=== PATIENT | female | born 1955 | race Caucasian/White ===

== ENCOUNTER → 2018-06-29 | Outpatient (CLI) | payer MEDICARE, OTHER ==
[~2018-06-29] MED LIST: ACID CONTROL150 MG PO; COREG12.5 MG PO; DEMADEX100 MG PO; FLAX SEED OIL1 EACH PO; KLOR-CON 88 MEQ PO; LANOXIN125 MCG PO; LIPITOR10 MG PO; MECLIZINE HCL12.5 MG PO; METFORMIN HCL500 MG PO; PRINIVIL10 MG PO; RANITIDINE HCL150 MG; TIROSINT100 MCG PO; eliquis PO
--- NOTE | 2018-06-29 14:23 | Diagnostic Imaging Report ---
EXAM: Lumbar spine radiographs-5 views; sacrum/coccyx radiographs-3 views INDICATION: Low back pain status post fall. COMPARISON: None FINDINGS: BONES: Mild anterolisthesis of L4 and L5. No acute displaced fractures in the lumbar spine, sacrum, or coccyx. Bowel gas partially obscures visualization of the sacrum and coccyx. Vertebral body heights are preserved. DISCS: Mild degenerative disc changes. JOINTS: Mild facet degenerative changes, most pronounced at L4-L5 and L5-S1. Mild bilateral sacroiliac joints degenerative changes. OTHER: Atherosclerotic vascular calcifications. Partially seen pacemaker leads. IMPRESSION: No acute radiographic abnormality. Signed by: Dr. Romana Lozano MD on 06/29/2018 2:20 PM
== END ==
LOC: RAD 12:52
PROVIDERS: ATTEND Internal Medicine
DX: M54.5 Low back pain (principal); Z91.81 History of falling
CPT/HCPCS: 72110; 72220

== ENCOUNTER → 2024-05-30 | Outpatient (REF) | payer MEDICARE, OTHER ==
[~2024-05-30] MED LIST changes: +ALLOPURINOL300 MG PO; +AMIODARONE HCL200 MG PO; +FAMOTIDINE20 MG PO; +VITAMIN B-121000 MCG PO
== END ==
LOC: RAD 11:46
PROVIDERS: ATTEND Internal Medicine
DX: Z01.818 Encounter for other preprocedural examination (principal)
CPT/HCPCS: 93005

== ENCOUNTER 2024-09-03 16:02 | Emergency (ER) | payer MEDICARE, OTHER ==
[~2024-09-03] VITALS: Ht 160 cm; Wt 147.4 kg
[2024-09-03 16:28] VITALS: PULSE 70; RESP 16; TEMP 98.4; O2SAT 97
[2024-09-03] MEDS ORDERED: CEFDINIR300 MG PO (16:58)
[2024-09-03 17:31] LABS: LEUKOCYTE ESTERASE ,URINE SMALL (NEGATIVE); PROTEIN,URINE DIPSTICK 2+ (NEGATIVE); URINE UROBILINOGEN 0.2 mg/dL (0.2 - 1)
[2024-09-03 17:41] LABS: WBC,URINE (MAN) >50 /HPF (0-5)
== END 2024-09-03 17:05 | disposition home or self-care (01) ==
LOC: ER 16:56
DX: R30.0 Dysuria (principal); N39.0 Urinary tract infection, site not specified; I50.9 Heart failure, unspecified; I48.91 Unspecified atrial fibrillation; E78.5 Hyperlipidemia, unspecified; K21.9 Gastro-esophageal reflux disease without esophagitis
CPT/HCPCS: 81001; 87086; 87186; 99283

== ENCOUNTER 2024-10-26 13:38 | Emergency (ER) | payer MEDICARE, OTHER ==
[~2024-10-26] VITALS: Ht 160 cm; Wt 147.4 kg
[~2024-10-26 13:38] MED LIST changes: +CEFDINIR300 MG PO
[2024-10-26 14:42] VITALS: PULSE 70; RESP 18; TEMP 98.2; O2SAT 99
[2024-10-26] MEDS ORDERED: DOXYCYCLINE HY100 MG PO (15:16)
[2024-10-26] MEDS: TETANUS/DIPHTHERIA TOX ADULT 0.5 ML SYR IM ONE (15:16)
== END 2024-10-26 15:26 | disposition home or self-care (01) ==
LOC: VACCPMC 15:16
DX: S81.811A Laceration without foreign body, right lower leg, initial encounter (principal)
CPT/HCPCS: 90471; 90714; 99283